=== PATIENT | male | born 1960 | race Hispanic/Latino ===

== ENCOUNTER → 2020-06-07 | Outpatient (CLI) | payer BC | END | disposition home or self-care (01) | LOC: OIH 08:57 | PROVIDERS: ATTEND Internal Medicine | DX: R05 Cough (principal); M47.814 Spondylosis without myelopathy or radiculopathy, thoracic region | CPT/HCPCS: 71046 ==

== ENCOUNTER 2021-02-15 07:26 | Inpatient (IN) | payer BC ==
[~2021-02-15] VITALS: Ht 165.1 cm; Wt 101.0 kg
[2021-02-15 07:58] LABS: BASOPHILS % (AUTO) 0.3 % (0.0-5.0); EOSINOPHILS % (AUTO) 1.7 % (0.0-8.0); HEMATOCRIT 40.5 % (42-54); LYMPHOCYTES % (AUTO) 22.3 % (21.0-51.0); MEAN CORPUSCULAR HEMOGLOBIN 27.8 pg (27.0-33.0); MEAN CORPUSCULAR HGB CONC 32.6 g/dL (32.0-36.0); MEAN CORPUSCULAR VOLUME 85.4 fL (79-99); MONOCYTES % (AUTO) 6.8 % (3.0-13.0); NEUTROPHILS % (AUTO) 68.6 % (40.0-77.0); PLATELET COUNT (AUTO) 144 K/uL (130-400); RED BLOOD CELL COUNT(AUTO) 4.74 MIL/uL (4.50-6.20); RED CELL DISTRIBUTION WIDTH 14.1 % (11.0-15.5); WHITE BLOOD COUNT (AUTO) 6.3 K/uL (4.8-10.8)
[2021-02-15 08:20] LABS: B-TYPE NATRIURETIC PEPTIDE 16 pg/mL (0-100)
[2021-02-15 08:26] LABS: ALBUMIN 3.8 g/dL (3.5-5.0); BILIRUBIN,TOTAL 0.6 mg/dL (0.2-1.0); TOTAL PROTEIN, SERUM 6.7 g/dL (6.0-8.3)
[2021-02-15 08:35] LABS: APPEARANCE,URINE Clear (CLEAR); BILIRUBIN,URINE Negative (NEGATIVE); COLOR,URINE Yellow (YELLOW); GLUCOSE, URINE (UA) Negative (NEGATIVE); KETONES,URINE Trace mg/dL (NEGATIVE); LEUKOCYTE ESTERASE ,URINE Negative (NEGATIVE); NITRATE,URINE Negative (NEGATIVE); OCCULT BLOOD,URINE Negative (NEGATIVE); PH,URINE 5.5 (5.0-8.0); PROTEIN,URINE POS 1+ mg/dL (NEGATIVE)
[2021-02-15 08:50] LABS: BACTERIA,URINE Few /HPF (None Seen); RBC,URINE 0-1 /HPF (0-1)
[2021-02-15 08:51] LABS: MUCUS,URINE Few LPF (None Seen); SQUAMOUS EPITHELIAL CELL,UR None Seen /HPF (0-2)
[2021-02-15] MEDS ORDERED: LISI40TA9 PO (12:12)
[2021-02-15] MEDS ORDERED: METO50TA18 PO (12:12)
[2021-02-15] MEDS ORDERED: GLIP10TA9 PO (12:12)
[2021-02-15] MEDS ORDERED: TICA90TA PO (12:12)
[2021-02-15] MEDS ORDERED: ATOR40TA69 PO (12:12)
[2021-02-15] MEDS ORDERED: METF-446 PO (12:12)
[2021-02-15] MEDS ORDERED: PANT40TA54 PO (12:12)
[2021-02-15] MEDS ORDERED: AEC81 PO (12:12)
[2021-02-15] MEDS ORDERED: DOXA1TAB2 PO (12:12)
[2021-02-15] MEDS ORDERED: ONDA-104 PO (12:12)
[2021-02-15] MEDS ORDERED: ONDANSETRON 4MG TABLET PO PRN (17:00)
[2021-02-15] MEDS: TICAGRELOR 90 MG TABLET PO SCH (17:27)
[2021-02-16] VITALS (7 sets, daily range): BP systolic 115–173; BP diastolic 66–113
[2021-02-16] MEDS ORDERED: ACETAMINOPHEN 325 MG TAB PO PRN (07:00)
[2021-02-16] MEDS ORDERED: HYDROMORPHONE 0.5 MG SYG (0.5MG/0.5ML) IVP PRN (07:00)
[2021-02-16] MEDS ORDERED: HYDROMORPHONE 0.5 MG SYG (0.5MG/0.5ML) ONE (08:02)
[2021-02-16] MEDS ORDERED: ONDANSETRON 4MG INJ ONE (08:09)
[2021-02-16] MEDS: DOXAZOSIN MESYLATE 2 MG TABLET PO SCH (10:27)
[2021-02-16] MEDS: ASPIRIN 81 MG EC TAB PO SCH (10:27)
[2021-02-16] MEDS: ATORVASTATIN 40 MG TABLET PO SCH (10:27)
[2021-02-16] MEDS: ISOSORBIDE DINITRATE 10MG TAB PO SCH ×2 (10:28→20:52)
[2021-02-16] MEDS: METOPROLOL TARTRATE 50 MG TAB PO SCH (10:28)
[2021-02-16] MEDS: LISINOPRIL 40 MG TABLET PO SCH (10:28)
[2021-02-16] MEDS: PANTOPRAZOLE 40 MG TAB DR PO SCH (10:28)
[2021-02-16] MEDS: RANOLAZINE 500 MG TAB.SR.12H PO SCH ×2 (10:29→20:52)
[2021-02-16] MEDS: ENOXAPARIN SODIUM 100 MG/1 ML SQ SCH ×2 (10:30→20:54)
[2021-02-16] MEDS: GLIPIZIDE 5 MG TABLET PO SCH (10:34)
[2021-02-16] MEDS: TICAGRELOR 90 MG TABLET PO SCH ×2 (10:34→16:34)
[2021-02-16] MEDS: METFORMIN HCL 500 MG TABLET PO SCH ×2 (10:35→16:34)
[2021-02-16] MEDS: ONDANSETRON 4MG INJ IVP PRN (16:34)
[2021-02-16] MEDS: MORPHINE 2 MG SYG IVP PRN (16:34)
[2021-02-17] VITALS: BP 123/59
[2021-02-17 04:00] VITALS: BP 135/69
[2021-02-17 06:20] LABS: HEMATOCRIT 38.4 % (42-54); MEAN CORPUSCULAR HEMOGLOBIN 28.1 pg (27.0-33.0); MEAN CORPUSCULAR HGB CONC 32.3 g/dL (32.0-36.0); MEAN CORPUSCULAR VOLUME 87.1 fL (79-99); RED BLOOD CELL COUNT(AUTO) 4.41 MIL/uL (4.50-6.20); RED CELL DISTRIBUTION WIDTH 14.2 % (11.0-15.5); WHITE BLOOD COUNT (AUTO) 7.9 K/uL (4.8-10.8)
[2021-02-17 07:16] LABS: ALBUMIN 3.4 g/dL (3.5-5.0); BILIRUBIN,TOTAL 0.7 mg/dL (0.2-1.0); CREATININE 1.1 mg/dL (0.5-1.5); TOTAL PROTEIN, SERUM 6.3 g/dL (6.0-8.3)
[2021-02-17 07:57] VITALS: BP 144/70
[2021-02-17] MEDS: METFORMIN HCL 500 MG TABLET PO SCH ×2 (08:21→16:48)
[2021-02-17] MEDS: TICAGRELOR 90 MG TABLET PO SCH ×2 (08:21→16:57)
[2021-02-17] MEDS: ISOSORBIDE DINITRATE 10MG TAB PO SCH ×2 (08:22→21:51)
[2021-02-17] MEDS: GLIPIZIDE 5 MG TABLET PO SCH (08:22)
[2021-02-17] MEDS: DOXAZOSIN MESYLATE 2 MG TABLET PO SCH (08:22)
[2021-02-17] MEDS: ASPIRIN 81 MG EC TAB PO SCH (08:22)
[2021-02-17] MEDS: PANTOPRAZOLE 40 MG TAB DR PO SCH (08:23)
[2021-02-17] MEDS: RANOLAZINE 500 MG TAB.SR.12H PO SCH ×2 (08:23→21:51)
[2021-02-17] MEDS: LISINOPRIL 40 MG TABLET PO SCH (08:23)
[2021-02-17] MEDS: METOPROLOL TARTRATE 50 MG TAB PO SCH (08:23)
[2021-02-17] MEDS: ATORVASTATIN 40 MG TABLET PO SCH (08:23)
[2021-02-17] MEDS: ENOXAPARIN SODIUM 100 MG/1 ML SQ SCH ×2 (08:24→21:54)
[2021-02-17] MEDS ORDERED: DiphenhydrAMINE HCL 50 MG/ML VIAL IVP PRN (11:30)
[2021-02-17 12:00] VITALS: BP 116/68
[2021-02-17 16:00] VITALS: BP 134/77
[2021-02-17] MEDS: ONDANSETRON 4MG INJ IVP PRN (16:57)
[2021-02-17 20:00] VITALS: BP 154/83
[2021-02-18] VITALS: BP 120/68
[2021-02-18 04:00] VITALS: BP 143/78
[2021-02-18 05:37] LABS: HEMATOCRIT 38.3 % (42-54); MEAN CORPUSCULAR HGB CONC 32.6 g/dL (32.0-36.0); MEAN CORPUSCULAR VOLUME 85.7 fL (79-99); RED BLOOD CELL COUNT(AUTO) 4.47 MIL/uL (4.50-6.20); RED CELL DISTRIBUTION WIDTH 14.1 % (11.0-15.5); WHITE BLOOD COUNT (AUTO) 7.6 K/uL (4.8-10.8)
[2021-02-18 05:50] LABS: INR 1.06 (0.85-1.15); PROTHROMBIN TIME 11.5 SEC (9.6-11.6)
[2021-02-18 05:52] LABS: PARTIAL THROMBOPLASTIN TIME 31.4 SEC (26.3-35.5)
[2021-02-18 05:56] LABS: CREATININE 1.1 mg/dL (0.5-1.5); POTASSIUM 3.6 mmol/L (3.5-5.1)
[2021-02-18] MEDS: ATORVASTATIN 40 MG TABLET PO SCH (07:55)
[2021-02-18] MEDS: RANOLAZINE 500 MG TAB.SR.12H PO SCH ×2 (07:55→22:26)
[2021-02-18] MEDS: METOPROLOL TARTRATE 50 MG TAB PO SCH (07:55)
[2021-02-18] MEDS: LISINOPRIL 40 MG TABLET PO SCH (07:56)
[2021-02-18] MEDS: ISOSORBIDE DINITRATE 10MG TAB PO SCH ×2 (07:56→22:26)
[2021-02-18] MEDS: PANTOPRAZOLE 40 MG TAB DR PO SCH (07:56)
[2021-02-18] MEDS: DOXAZOSIN MESYLATE 2 MG TABLET PO SCH (07:56)
[2021-02-18] MEDS: ASPIRIN 81 MG EC TAB PO SCH (07:57)
[2021-02-18] MEDS: TICAGRELOR 90 MG TABLET PO SCH ×2 (07:57→17:00)
[2021-02-18] MEDS: GLIPIZIDE 5 MG TABLET PO SCH (07:57)
[2021-02-18] MEDS: ENOXAPARIN SODIUM 100 MG/1 ML SQ SCH ×2 (07:57→22:25)
[2021-02-18] MEDS: METFORMIN HCL 500 MG TABLET PO SCH ×2 (07:57→17:00)
[2021-02-18 08:30] VITALS: BP 152/87
[2021-02-18] MEDS: MORPHINE 2 MG SYG IVP PRN ×2 (09:58→20:36)
[2021-02-18] MEDS: ONDANSETRON 4MG INJ IVP PRN ×2 (09:58→20:35)
[2021-02-18 11:48] VITALS: BP 116/64
[2021-02-18] MEDS: 0.9%NACL 1000ML 1,000 ML IV SCH (17:30)
[2021-02-18 19:30] VITALS: BP 134/74
[2021-02-19] VITALS (13 sets, daily range): BP systolic 126–173; BP diastolic 77–99
[2021-02-19] MEDS: 0.9%NACL 1000ML 1,000 ML IV SCH ×3 (03:31→23:36)
[2021-02-19 05:26] LABS: HEMATOCRIT 39.1 % (42-54); MEAN CORPUSCULAR HEMOGLOBIN 28.5 pg (27.0-33.0); MEAN CORPUSCULAR HGB CONC 32.2 g/dL (32.0-36.0); MEAN CORPUSCULAR VOLUME 88.5 fL (79-99); RED BLOOD CELL COUNT(AUTO) 4.42 MIL/uL (4.50-6.20); RED CELL DISTRIBUTION WIDTH 14.2 % (11.0-15.5); WHITE BLOOD COUNT (AUTO) 6.9 K/uL (4.8-10.8)
[2021-02-19 05:47] LABS: INR 1.05 (0.85-1.15); PROTHROMBIN TIME 11.4 SEC (9.6-11.6)
[2021-02-19 05:48] LABS: PARTIAL THROMBOPLASTIN TIME 29.8 SEC (26.3-35.5)
[2021-02-19 07:45] LABS: ALBUMIN 3.3 g/dL (3.5-5.0); BILIRUBIN,TOTAL 0.4 mg/dL (0.2-1.0); CREATININE 1.3 mg/dL (0.5-1.5); POTASSIUM 4.2 mmol/L (3.5-5.1); TOTAL PROTEIN, SERUM 6.3 g/dL (6.0-8.3)
[2021-02-19] MEDS: GLIPIZIDE 5 MG TABLET PO SCH (08:00)
[2021-02-19] MEDS: TICAGRELOR 90 MG TABLET PO SCH ×2 (08:00→20:34)
[2021-02-19] MEDS: METFORMIN HCL 500 MG TABLET PO SCH ×2 (08:00→17:00)
[2021-02-19] MEDS: DOXAZOSIN MESYLATE 2 MG TABLET PO SCH (09:00)
[2021-02-19] MEDS: ASPIRIN 81 MG EC TAB PO SCH (09:00)
[2021-02-19] MEDS: ATORVASTATIN 40 MG TABLET PO SCH (09:00)
[2021-02-19] MEDS: RANOLAZINE 500 MG TAB.SR.12H PO SCH ×2 (09:00→20:34)
[2021-02-19] MEDS: MORPHINE 2 MG SYG IVP PRN ×2 (09:07→16:35)
[2021-02-19] MEDS: ONDANSETRON 4MG INJ IVP PRN ×2 (09:08→16:34)
[2021-02-19] MEDS: PANTOPRAZOLE 40 MG TAB DR PO SCH (11:03)
[2021-02-19] MEDS: LISINOPRIL 40 MG TABLET PO SCH (11:03)
[2021-02-19] MEDS: ISOSORBIDE DINITRATE 10MG TAB PO SCH (11:03)
[2021-02-19] MEDS: METOPROLOL TARTRATE 50 MG TAB PO SCH (11:04)
[2021-02-19] MEDS ORDERED: IOHEXOL-350 50ML VIAL IV ONE (12:58)
[2021-02-19] MEDS ORDERED: IOHEXOL 350 MG/ML 100ML INFUS..BTL IV ONE ×2 (12:58→14:04)
[2021-02-19] MEDS ORDERED: LIDOCAINE HCL 400MG/20ML VIAL ONE (12:58)
[2021-02-19] MEDS ORDERED: BIVALIRUDIN 250 MG/VIAL IV ONE ×2 (12:58→14:24)
[2021-02-19] MEDS ORDERED: HEPARIN 1,000 UNIT VIAL ONE (12:58)
[2021-02-19] MEDS ORDERED: NITROGLYCERIN 50MG VIAL IV ONE (12:59)
[2021-02-19] MEDS ORDERED: FENTANYL CITRATE PF 50 MCG/1 ML 2ML VIAL ONE (13:27)
[2021-02-19] MEDS ORDERED: MIDAZOLAM HCL 1 MG/ML 2ML VIAL ONE (13:27)
[2021-02-19] MEDS ORDERED: HYDRALAZINE 20MG/ML VIAL ONE (14:56)
[2021-02-19] MEDS ORDERED: ASPIRIN 325MG EC TAB PO ONE (15:23)
[2021-02-19] MEDS: ACETAMINOPHEN 325 MG TAB PO PRN (18:40)
[2021-02-19] MEDS ORDERED: ACETAMINOPHEN WITH CODEINE 1 TAB TAB PO ONE (21:00)
[2021-02-19] MEDS ORDERED: LISINOPRIL 20 MG TABLET PO SCH (21:00)
[2021-02-19] MEDS ORDERED: AMLODIPINE 5 MG TAB PO ONE (21:00)
[2021-02-20 00:11] VITALS: BP 135/78
[2021-02-20 04:57] LABS: HEMATOCRIT 41.4 % (42-54); MEAN CORPUSCULAR HEMOGLOBIN 27.9 pg (27.0-33.0); MEAN CORPUSCULAR HGB CONC 32.4 g/dL (32.0-36.0); MEAN CORPUSCULAR VOLUME 86.3 fL (79-99); RED BLOOD CELL COUNT(AUTO) 4.8 MIL/uL (4.50-6.20); RED CELL DISTRIBUTION WIDTH 13.9 % (11.0-15.5)
[2021-02-20 05:06] LABS: POTASSIUM 3.4 mmol/L (3.5-5.1)
[2021-02-20 05:30] VITALS: BP 160/86
[2021-02-20 08:09] VITALS: BP 144/82
[2021-02-20] MEDS: TICAGRELOR 90 MG TABLET PO SCH ×2 (08:27→17:36)
[2021-02-20] MEDS: ATORVASTATIN 40 MG TABLET PO SCH (08:27)
[2021-02-20] MEDS: PANTOPRAZOLE 40 MG TAB DR PO SCH (08:27)
[2021-02-20] MEDS: METFORMIN HCL 500 MG TABLET PO SCH ×2 (08:27→17:00)
[2021-02-20] MEDS: LISINOPRIL 40 MG TABLET PO SCH (08:27)
[2021-02-20] MEDS: RANOLAZINE 500 MG TAB.SR.12H PO SCH ×2 (08:27→21:17)
[2021-02-20] MEDS: METOPROLOL TARTRATE 50 MG TAB PO SCH (08:27)
[2021-02-20] MEDS: DOXAZOSIN MESYLATE 2 MG TABLET PO SCH (08:28)
[2021-02-20] MEDS: GLIPIZIDE 5 MG TABLET PO SCH (08:28)
[2021-02-20] MEDS: ASPIRIN 81 MG EC TAB PO SCH (08:28)
[2021-02-20] MEDS ORDERED: ISOSORBIDE MONO 30MG SR TAB PO SCH (09:00)
[2021-02-20] MEDS: 0.9%NACL 1000ML 1,000 ML IV SCH (09:30)
[2021-02-20 11:14] VITALS: BP 121/70
[2021-02-20] MEDS ORDERED: RANO500T2 PO (11:22)
[2021-02-20] MEDS: MORPHINE 2 MG SYG IVP PRN (14:08)
[2021-02-20] MEDS: ONDANSETRON 4MG INJ IVP PRN (14:08)
[2021-02-20 15:41] VITALS: BP 111/64
[2021-02-20] MEDS: ACETAMINOPHEN 325 MG TAB PO PRN (15:42)
[2021-02-20] MEDS ORDERED: ACETAMINOPHEN WITH CODEINE 1 TAB TAB ONE (18:29)
[2021-02-20 20:00] VITALS: BP 126/65
[2021-02-21] VITALS: BP 117/72
[2021-02-21] MEDS: ACETAMINOPHEN WITH CODEINE 1 TAB TAB PO PRN ×3 (00:27→21:17)
[2021-02-21 04:00] VITALS: BP 115/64
[2021-02-21 07:32] VITALS: BP 156/78
[2021-02-21] MEDS: GLIPIZIDE 5 MG TABLET PO SCH (08:00)
[2021-02-21] MEDS: LACTULOSE 20 GM/30 ML UDCUP PO SCH ×3 (08:00→21:16)
[2021-02-21] MEDS: METFORMIN HCL 500 MG TABLET PO SCH ×2 (08:00→17:00)
[2021-02-21] MEDS: ASPIRIN 81 MG EC TAB PO SCH (09:34)
[2021-02-21] MEDS: METOPROLOL TARTRATE 50 MG TAB PO SCH (09:34)
[2021-02-21] MEDS: PANTOPRAZOLE 40 MG TAB DR PO SCH (09:34)
[2021-02-21] MEDS: ATORVASTATIN 40 MG TABLET PO SCH (09:34)
[2021-02-21] MEDS: DOXAZOSIN MESYLATE 2 MG TABLET PO SCH (09:35)
[2021-02-21] MEDS: ISOSORBIDE MONO 30MG SR TAB PO SCH (09:35)
[2021-02-21] MEDS: LISINOPRIL 40 MG TABLET PO SCH (09:35)
[2021-02-21] MEDS: RANOLAZINE 500 MG TAB.SR.12H PO SCH ×2 (09:36→21:16)
[2021-02-21] MEDS: TICAGRELOR 90 MG TABLET PO SCH ×2 (10:14→17:50)
[2021-02-21 10:54] VITALS: BP 141/89
[2021-02-21] MEDS ORDERED: IOHEXOL-350 75 ML VIAL IV ONE (13:54)
[2021-02-21 15:31] VITALS: BP 164/82
[2021-02-21 20:00] VITALS: BP 151/84
[2021-02-21] MEDS ORDERED: GLUCAGON 1MG KIT 1 MG ML IM PRN (21:00)
[2021-02-21] MEDS ORDERED: DEXTROSE 50%-WATER 50 ML DISP.SYRIN IV PRN (21:00)
[2021-02-21] MEDS: INSULIN HUMULIN R 100 UNIT/ML 3ML SQ SCH (21:24)
[2021-02-22] VITALS: BP 138/74
[2021-02-22] MEDS: LACTULOSE 20 GM/30 ML UDCUP PO SCH ×4 (01:55→14:00)
[2021-02-22 04:00] VITALS: BP 152/83
[2021-02-22] MEDS ORDERED: PEG 3350/NA SULF,BICARB,CL/KCL 4000 ML SOLN PO SCH (06:30)
[2021-02-22] MEDS: INSULIN HUMULIN R 100 UNIT/ML 3ML SQ SCH ×2 (07:23→11:14)
[2021-02-22 07:54] VITALS: BP 176/101
[2021-02-22] MEDS ORDERED: BISACODYL 10 MG SUPP.RECT RC SCH (09:00)
[2021-02-22] MEDS: DOXAZOSIN MESYLATE 2 MG TABLET PO SCH (09:41)
[2021-02-22] MEDS: ASPIRIN 81 MG EC TAB PO SCH (09:41)
[2021-02-22] MEDS: ISOSORBIDE MONO 30MG SR TAB PO SCH (09:41)
[2021-02-22] MEDS: PANTOPRAZOLE 40 MG TAB DR PO SCH (09:42)
[2021-02-22] MEDS: ATORVASTATIN 40 MG TABLET PO SCH (09:42)
[2021-02-22] MEDS: RANOLAZINE 500 MG TAB.SR.12H PO SCH (09:42)
[2021-02-22] MEDS: METOPROLOL TARTRATE 50 MG TAB PO SCH (09:43)
[2021-02-22] MEDS: LISINOPRIL 40 MG TABLET PO SCH (09:43)
[2021-02-22] MEDS: TICAGRELOR 90 MG TABLET PO SCH (09:45)
[2021-02-22] MEDS: GLIPIZIDE 5 MG TABLET PO SCH (09:48)
[2021-02-22 12:07] VITALS: BP 171/93
[2021-02-22] MEDS ORDERED: TICA90TA PO ×2 (15:42→15:52)
[2021-02-22] MEDS ORDERED: ISOS30TA92 PO (15:53)
[2021-02-22 16:00] VITALS: BP 150/79
== END 2021-02-22 16:00 | disposition home or self-care (01) | DRG 251 ==
LOC: EDH 07:26 → EDHIP 11:45 → OBSVTOIN 11:45 → 3CH 02-16 01:23
PROVIDERS: ADMIT Internal Medicine; ATTEND Internal Medicine
PROC: 02703ZZ Dilation of Coronary Artery, One Artery, Percutaneous Approach (ICD-10-PCS; principal; 2021-02-19)
PROC: 4A023N7 Measurement of Cardiac Sampling and Pressure, Left Heart, Percutaneous Approach (ICD-10-PCS; 2021-02-19)
PROC: B2111ZZ Fluoroscopy of Multiple Coronary Arteries using Low Osmolar Contrast (ICD-10-PCS; 2021-02-19)
PROC: B2151ZZ Fluoroscopy of Left Heart using Low Osmolar Contrast (ICD-10-PCS; 2021-02-19)
DX: I25.110 Atherosclerotic heart disease of native coronary artery with unstable angina pectoris (principal); I10 Essential (primary) hypertension; E78.5 Hyperlipidemia, unspecified; E11.9 Type 2 diabetes mellitus without complications; E78.00 Pure hypercholesterolemia, unspecified; M54.12 Radiculopathy, cervical region; M54.14 Radiculopathy, thoracic region; F41.9 Anxiety disorder, unspecified; M47.9 Spondylosis, unspecified; K21.9 Gastro-esophageal reflux disease without esophagitis; Z95.5 Presence of coronary angioplasty implant and graft; Z82.49 Family history of ischemic heart disease and other diseases of the circulatory system
CPT/HCPCS: 36415; 70450; 70496; 70498; 71045; 72141; 72146; 80048; 80053; 81001; 82550; 82948; 83874; 83880; 84484; 85025; 85027; 85610; 85730; 92920; 93005; 93306; 93458; 99156; 99157; C1760; C1769; C1887; C1894; G0378; J0360; J0583; J1170; J1644; J1650; J1815; J2250; J2405; J3010; J3490; Q9967

== ENCOUNTER 2022-10-12 10:21 | Emergency (ER) | payer BC ==
[~2022-10-12] VITALS: Ht 165.1 cm; Wt 103.0 kg
[~2022-10-12 10:21] MED LIST: AEC81 PO; ATOR40TA69 PO; DOXA1TAB2 PO; GLIP10TA9 PO; ISOS30TA92 PO; LISI40TA9 PO; METF-446 PO; METO50TA18 PO; PANT40TA54 PO; RANO500T2 PO; TICA90TA PO
[2022-10-12] MEDS ORDERED: METOCLOPRAMIDE 10 MG/2 ML VIAL IVP SCH (11:30)
[2022-10-12] MEDS ORDERED: DiphenhydrAMINE HCL 50 MG/ML VIAL IV SCH (11:30)
[2022-10-12] MEDS ORDERED: 0.9%NACL 1000ML 1,000 ML IV SCH (11:30)
[2022-10-12 13:14] LABS: BASOPHILS # (AUTO) 0.02 K/uL (0.00-0.20); BASOPHILS % (AUTO) 0.2 % (0.0-5.0); EOSINOPHILS # (AUTO) 0.04 K/uL (0.00-0.70); EOSINOPHILS % (AUTO) 0.3 % (0.0-8.0); HEMATOCRIT 36.8 % (42-54); IMMATURE GRANULOCYTE ABSOLUTE 0.07 K/uL (0-1); LYMPHOCYTES # (AUTO) 1.3 K/uL (1.0-4.8); LYMPHOCYTES % (AUTO) 10.6 % (21.0-51.0); MEAN CORPUSCULAR HEMOGLOBIN 26.5 pg (27.0-33.0); MEAN CORPUSCULAR HGB CONC 31.8 g/dL (32.0-36.0); MEAN CORPUSCULAR VOLUME 83.4 fL (79-99); MONOCYTES # (AUTO) 0.7 K/uL (0.1-1.0); MONOCYTES % (AUTO) 5.4 % (3.0-13.0); NEUTROPHILS # (AUTO) 9.9 K/uL (1.8-7.7); NEUTROPHILS % (AUTO) 82.9 % (40.0-77.0); PLATELET COUNT (AUTO) 179 K/uL (130-400); RED BLOOD CELL COUNT(AUTO) 4.41 MIL/uL (4.50-6.20); RED CELL DISTRIBUTION WIDTH 14.5 % (11.0-15.5); WHITE BLOOD COUNT (AUTO) 11.9 K/uL (4.8-10.8)
[2022-10-12 13:30] LABS: CREATININE 1.1 mg/dL (0.5-1.5); POTASSIUM 4.6 mmol/L (3.5-5.1)
[2022-10-12] MEDS ORDERED: MORPHINE 2 MG SYG IVP SCH (14:00)
[2022-10-12] MEDS ORDERED: ONDANSETRON 4MG INJ IVP SCH (14:00)
[2022-10-12] MEDS ORDERED: MORPHINE 2 MG SYG IV ONE (16:00)
[2022-10-12] MEDS ORDERED: HYDROCODONE/ACETAMINOPHEN 5/325 MG TAB PO ONE (17:00)
[2022-10-12 18:23] LABS: APPEARANCE,URINE CLEAR (CLEAR); BILIRUBIN,URINE NEGATIVE (NEGATIVE); COLOR,URINE LIGHT-YELLOW (YELLOW); GLUCOSE, URINE (UA) 30 mg/dL (NEGATIVE); KETONES,URINE NEGATIVE (NEGATIVE); LEUKOCYTE ESTERASE ,URINE NEGATIVE Leu/uL (NEGATIVE); NITRATE,URINE NEGATIVE (NEGATIVE); OCCULT BLOOD,URINE NEGATIVE (NEGATIVE); PH,URINE 5.5 (5.0-8.0); PROTEIN,URINE NEGATIVE (NEGATIVE); UROBILINOGEN,URINE 0.2 mg/dL (0.2-1.0)
[2022-10-12] MEDS ORDERED: METO-296 PO (18:24)
[2022-10-12] MEDS ORDERED: MELO-106 PO (18:24)
[2022-10-12 18:26] LABS: ADD UA MICROSCOPIC YES
[2022-10-12 18:33] VITALS: BP 172/89; PULSE 59; RESP 18; O2SAT 98
[2022-10-12 18:47] LABS: MUCUS,URINE RARE LPF (None Seen); RBC,URINE 0-1 /HPF (0-1); WBC,URINE 0-1 /HPF (0-1)
== END 2022-10-12 18:36 | disposition home or self-care (01) ==
LOC: EDH 10:21
DX: G44.209 Tension-type headache, unspecified, not intractable (principal); I10 Essential (primary) hypertension; E78.5 Hyperlipidemia, unspecified; E11.9 Type 2 diabetes mellitus without complications; K21.9 Gastro-esophageal reflux disease without esophagitis; G89.29 Other chronic pain; Z79.899 Other long term (current) drug therapy
CPT/HCPCS: 99284; 96374; 96375; 70450; 96361; 80048; 85025; 82948; 81001; 36415; J1200; J2270; J7030; J2405; J2765